=== PATIENT | female | born 1990 | race Two or more races ===

== ENCOUNTER 2025-05-04 12:55 | Emergency (ER) | payer OTHER ==
[~2025-05-04] VITALS: Ht 157.5 cm; Wt 51.3 kg
[2025-05-04 12:58] VITALS: BP 110/67
[2025-05-04] MEDS ORDERED: diphenhydrAMINE 50 MG/1 ML VIAL ONE (13:49)
[2025-05-04] MEDS ORDERED: METOCLOPRAMIDE HCL 10 MG/2 ML VIAL ONE (13:49)
[2025-05-04] MEDS ORDERED: KETOROLAC TROMETHAMINE 15 MG INJ ONE (13:49)
[2025-05-04] MEDS: IV NORMAL SALINE 1000 ML BAG IV ONE (14:01)
[2025-05-04] MEDS: diphenhydrAMINE 50 MG/1 ML VIAL IV ONE (14:01)
[2025-05-04] MEDS: METOCLOPRAMIDE HCL 10 MG/2 ML VIAL IV ONE (14:01)
[2025-05-04] MEDS: KETOROLAC TROMETHAMINE 15 MG INJ IVP ONE (14:02)
[2025-05-04] MEDS ORDERED: IBUP-1955 PO (14:43)
[2025-05-04 15:01] VITALS: BP 110/67; TEMP 97.6; O2SAT 96
== END 2025-05-04 15:02 | disposition home or self-care (01) ==
LOC: ER 12:55
DX: R51.9 Headache, unspecified (principal); E11.9 Type 2 diabetes mellitus without complications; Z86.32 Personal history of gestational diabetes
CPT/HCPCS: 99284; 96374; 96375; 96361; J1885; J1200; J2765; J7040; A4606; A4663